=== PATIENT | male | born 1965 | race Caucasian/White ===

== ENCOUNTER 2021-06-20 07:56 | Day surgery (SDC) | payer OTHER ==
[~2021-06-20] VITALS: Ht 190.5 cm; Wt 93.2 kg
--- NOTE | 2021-06-20 10:06 | NUR ---
06/20/21 1006 Gricel Ríos 0951 PT ARRIVED IN PACU NON RESPONSIVE TO NOXIOUS STIMULI WITH OPA IN PLACE. CHIN LIFT HELD BY RN. 0958 PT REACTIVE. OPA REMOVED. 1006 SNORING. REU.
--- NOTE | 2021-06-20 10:20 | NUR ---
PATIENT REPORT RECIEVED FROM CARSON MARSH. PATIENT BACK FROM PACU. PATIENT IS DROWSY. BREATHING EQUAL AND UNLABORED. VITAL SIGNS DOCUMENTED. IV SITE PATENT. PATIENT DENIES ANY PAIN OR NASUEA. SURGICAL SITE HAS SMALL AMOUNT OF RED DRAINAGE. PATIENT HAS WATER AT BEDSIDE. NO QUESTIONS AT THIS TIME. CALL LIGHT WITHIN REACH NO FUTHER NEEDS.
--- NOTE | 2021-06-20 10:42 | NUR ---
1035: MOUSTACHE DRESSING PLACED ON PATIENT FOR NASAL DRAINAGE. ICE WATER PLACED AT BEDSIDE. CALL LIGHT WITHIN REACH.
--- NOTE | 2021-06-20 10:48 | OR ---
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 PROCEDURE: Septoplasty. ANESTHESIA: General, LMA; Addison LENTZ PREOP HISTORY: Mr. 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 He was taken to the operating room for the above-mentioned procedures. PROCEDURE AND FINDINGS: After informed consent, the patient was taken to the operating room, placed in supine position, where general LMA anesthesia was induced. The patient and procedure were verified. The patient received preoperative intranasal oxymetazoline and intravenous Ancef. The patient was repositioned. Headlight speculum exam of the nasal cavity showed a significant septal deformity, nearly completely obstructive on the right side. The septal mucosa was injected with 1% lidocaine with epi, total of 5 mL used, submucoperichondrial injection bilaterally. A left hemitransfixion incision was then made. Submucoperichondrial flap elevated on the left side. Incision was made through septal cartilage to the other side about a centimeter posterior to the mucosal incision and a submucoperichondrial pocket elevated on the right. All deviated septal bone and cartilage were then removed with a swivel knife and Josefina and the septum was medialized, narrowed in this manner. Incision was closed with 4-0 interrupted chromic. Packing was placed. Equal amount, one piece of Merocel each side coated with Neosporin tied anteriorly over a pad. The pharynx was suctioned clear of blood and secretions. Hemostasis was verified. The patient was then awakened, extubated, and transported to the recovery room in good condition. No complications. BLOOD LOSS: Electronically Signed By: SHANE MACK MD 06/20/21 1048 PATIENT NAME: JACKY GUIDO IV OPERATIVE REPORT DATE OF : 61 REPORT #: [id number] PHYSICIAN: SHANE MACK MD PCP: FRANKY NEW MD REPORT IS CONFIDENTIAL AND NOT TO BE RELEASED WITHOUT AUTHORIZATION [address] [address] Signed Minimal. SPECIMENS: No specimens. DRAINS: No drains. PACKING: One piece of Merocel each nostril. Shane Mack MD GC/MODL /[id number] Copies: ~ Electronically Signed By: SHANE MACK MD 06/20/21 1048 PATIENT NAME: BITHER,JACKY WADE IV OPERATIVE REPORT DATE OF : 61 REPORT #: [id number] PHYSICIAN: SHANE MACK MD PCP: FRANKY NEW MD REPORT IS CONFIDENTIAL AND NOT TO BE RELEASED WITHOUT AUTHORIZATION
[2021-06-20] MEDS ORDERED: HYDROCODON-ACE1 EA10 PO (10:51)
[2021-06-20] MEDS ORDERED: CEPHALEXIN500 M1 PO (10:52)
--- NOTE | 2021-06-20 11:40 | NUR ---
1115: PATIENT DENIES PAIN. MOUSTACHE DRESSING IN PLACE WITH MINIMAL RED DRAINAGE. VS CHECKED. IV DC'D WNL. TIP INTACT. DRESSING APPLIED. TOLERATING WATER. DISCHARGE INSTRUCTIONS GIVEN TO PATIENT AND . PATIENT ASSISTED OOB AND TO WALK AROUND ROOM. GAIT STEADY. PATIENT GETTING DRESSED WITH HELP FROM . 1125: PATIENT DISCHARGED TO HOME VIA WHEELCHAIR WITH .
== END 2021-06-20 11:25 | disposition home or self-care (01) ==
LOC: DS 07:56 → OPS 07:56 → DS 09:00 → OPS 11:25
PROVIDERS: ATTEND Otolaryngology
PROC: 09C Ear, Nose, Sinus, Extirpation (ICD-10-PCS; principal; 2021-06-20 09:00)
DX: J34.2 Deviated nasal septum (principal); G47.30 Sleep apnea, unspecified
CPT/HCPCS: J0330; J0461; J0690; J1100; J1885; J2250; J2405; J2704; J2765; J3010; J7121

== ENCOUNTER 2021-12-12 06:18 | Day surgery (SDC) | payer OTHER ==
[~2021-12-12] VITALS: Ht 190.5 cm; Wt 93.6 kg
[~2021-12-12 06:18] MED LIST: CEPHALEXIN500 M1 PO; HYDROCODON-ACE1 EA10 PO
[2021-12-12] MEDS ORDERED: ADVIL200 MG PO (06:45)
--- NOTE | 2021-12-12 07:23 | NUR ---
VISITED PT PRIOR TO PROCEEDURE. WAS PRESENT. BOTH PT AND VOICED BEING CONFIDENT AND COMFORTABLE WITH THE PROCEEDURE. PRAYED WITH PT AND .
--- NOTE | 2021-12-12 08:37 | NUR ---
12/12/21 0837 Cheri Lema 1567 PT ARRIVED TO PACU ON RA, PT WAKES EASILY AND IS REORIENTED TO PACU AND EASILY FALLS BACK TO SLEEP. VSS.
--- NOTE | 2021-12-12 12:23 | OR ---
[facility] [address], [place] [address] Signed DATE OF OPERATION: 12/12/2021 SURGEON: Marc Fisher MD PREOPERATIVE DIAGNOSES: 1. Brother with rectal cancer age 48. 2. Diverticulosis. POSTOPERATIVE DIAGNOSES: 1. Moderate sigmoid diverticulosis. 2. Minimal to moderate internal hemorrhoids. PROCEDURE: Colonoscopy without biopsy. ESTIMATED BLOOD LOSS: None. INDICATIONS: Jacky is a 56-year-old gentleman asked to see me for a followup colonoscopy. We know his brother was diagnosed and treated for rectal cancer at age 48. His brother continues to do well. Jacky came to us in 2015 at the age of 50. He had moderate sigmoid diverticulosis. He had done well with Versed and fentanyl. He returns now five years later due to his family history. He has no lower GI complaints. 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 In the office, I gave him a pamphlet on colonoscopy. He understands the nature of the test. There is risk including, but not limited to gas bloating, crampy abdominal pain, bleeding, perforation requiring surgery, and missed diagnosis. We also reviewed the need for IV conscious sedation. He had expressed understanding and wished to proceed. PROCEDURE NOTE: Jacky was taken into our endoscopy suite and placed in the left lateral decubitus position. He was given 5 mg of Versed and 100 mcg of fentanyl. A digital rectal exam was performed. He has good sphincter tone. There are no external hemorrhoids. There are no masses. His prostate is mild to moderately enlarged and indurated. No obvious nodules. The adult colonoscope was introduced and advanced all around into the cecum under direct visualization of the camera. It took just a little extra sedation and abdominal compression in order to advance the scope. Jacky's prep was quite excellent. We could easily see the appendiceal orifice and ileocecal valve. The scope was then slowly withdrawn. We took pictures throughout for photodocumentation. Once again, he Electronically Signed By: MARC FISHER MD 12/12/21 1223 PATIENT NAME: JACKY GUIDO IV OPERATIVE REPORT DATE OF : 61 REPORT #: [id number] PHYSICIAN: MARC FISHER MD PCP: FRANKY NEW MD REPORT IS CONFIDENTIAL AND NOT TO BE RELEASED WITHOUT AUTHORIZATION [facility] [address], [place] [address] Signed has moderate sigmoid diverticulosis. They are moderate in size, moderate in number and scattered about. In the rectum, the scope was retroflexed and he does have minimal to moderate internal hemorrhoid columns. After this, the gas was suctioned out and the colonoscope removed. Jacky tolerated the procedure quite well. RECOMMENDATIONS: Jacky can follow up in 5 years for repeat colonoscopy due to his family history. Marc Fisher MD ALB/AILEENL /[id number] cc: MD Franky Henderson MD Copies: PHILLIPMARC HERNANDEZ MD, RUSSELL BARR MD ~ Electronically Signed By: MARC FISHER MD 12/12/21 1223 PATIENT NAME: JACKY GUIDO OPERATIVE REPORT DATE OF : 61 REPORT #: [id number] PHYSICIAN: MARC FISHER MD PCP: FRANKY NEW MD REPORT IS CONFIDENTIAL AND NOT TO BE RELEASED WITHOUT AUTHORIZATION
== END 2021-12-12 09:12 | disposition home or self-care (01) ==
LOC: DS 06:18
PROVIDERS: ATTEND Colon & Rectal Surgery
PROC: 0DJD8ZZ Inspection of Lower Intestinal Tract, Via Natural or Artificial Opening Endoscopic (ICD-10-PCS; principal; 2021-12-12 07:30)
DX: K57.30 Diverticulosis of large intestine without perforation or abscess without bleeding (principal); K64.8 Other hemorrhoids; N40.0 Benign prostatic hyperplasia without lower urinary tract symptoms; G47.33 Obstructive sleep apnea (adult) (pediatric); Z80.0 Family history of malignant neoplasm of digestive organs
CPT/HCPCS: G0500; J2250; J3010; J7121